=== PATIENT | male | born 1935 | race Caucasian/White ===

== ENCOUNTER → 2020-05-15 | Outpatient (CLI) | payer MEDICARE ==
[~2020-05-15] MED LIST: LEVO75TA5 PO; LISI-167 PO
[2020-05-15 12:26] LABS: ALBUMIN 3.8 g/dL (3.4-5.0); ANION GAP 4 mmol/L (5-15); CHLORIDE 108 mmol/L (98-107)
[2020-05-15 12:31] LABS: ALANINE AMINOTRANSFERASE 28 U/L (12-78); ALKALINE PHOSPHATASE 74 U/L (45-117); BILIRUBIN,TOTAL 0.7 mg/dL (0.2-1.0); CREATININE 1.09 mg/dL (0.7-1.3); TOTAL PROTEIN 7.2 g/dL (6.4-8.2)
[2020-05-15 12:36] LABS: INTERNATIONAL NORMALIZED RATIO 1.02 (0.93-1.1); PROTHROMBIN TIME 10.8 Seconds (9.6-11.5)
== END | disposition home or self-care (01) ==
LOC: STAR 11:02
PROVIDERS: ATTEND Neurological Surgery
DX: Z01.818 Encounter for other preprocedural examination (principal); M48.062 Spinal stenosis, lumbar region with neurogenic claudication; I45.10 Unspecified right bundle-branch block
CPT/HCPCS: 36415; 71046; 80053; 85610; 85730; 93005

== ENCOUNTER → 2020-05-23 | Outpatient (CLI) | payer MEDICARE | END | disposition home or self-care (01) | LOC: STAR 11:30 | PROVIDERS: ATTEND Family Medicine | DX: Z20.828 Contact with and (suspected) exposure to other viral communicable diseases (principal) | CPT/HCPCS: 87635 ==

== ENCOUNTER 2020-05-29 05:28 | Observation (INO) | payer MEDICARE ==
[~2020-05-29] VITALS: Ht 177.8 cm; Wt 93.0 kg
[2020-05-29] MEDS ORDERED: LIDOCAINE-MPF 1%, 2ML ONE (06:26)
[2020-05-29] MEDS ORDERED: CHLORHEXIDINE 15 ML UDC MM ONE (06:30)
[2020-05-29] MEDS ORDERED: BUPIVACAINE/EPI 0.5% 1:200K ONE (06:48)
[2020-05-29] MEDS ORDERED: BACITRACIN 50,000 UNIT ONE (06:48)
[2020-05-29 06:55] LABS: BASOPHILS % (AUTO) 1 % (0-1); EOSINOPHILS % (AUTO) 5 % (1-7); LYMPHOCYTES % (AUTO) 45 % (22-44); MEAN CORPUSCULAR HEMOGLOBIN 33.1 pg (27.5-34.5); MEAN CORPUSCULAR HGB CONC 33.9 g/dL (33.2-36.2); MEAN PLATELET VOLUME 7.3 fL (7.4-10.4); MONOCYTES % (AUTO) 11 % (2-9); NEUTROPHILS % (AUTO) 37 % (42-75); PLATELET COUNT 247 x10^3/uL (130-400); RED BLOOD COUNT 4.47 x10^6/uL (4.38-5.82); RED CELL DISTRIBUTION WIDTH 13.5 % (9.4-14.8)
[2020-05-29] MEDS ORDERED: LIDOCAINE-MPF 1%, 2ML INFIL ONE (07:00)
[2020-05-29] MEDS ORDERED: LACTATED RINGERS 1,000 ML IV SCH (07:00)
[2020-05-29] MEDS ORDERED: FENTANYL PF 250 MCG/5ML ONE (07:28)
[2020-05-29] MEDS ORDERED: DEXAMETHASONE 4 MG/ML, 1ML ONE (07:31)
[2020-05-29 07:47] LABS: MD SCAN
[2020-05-29] MEDS ORDERED: PROMETHAZINE 25 MG SUPP PR PRN (08:30)
[2020-05-29] MEDS ORDERED: LABETALOL 5MG/ML, 20ML IV PRN ×2 (08:30→11:30)
[2020-05-29] MEDS ORDERED: OXYcodone 5 MG/5 ML ORAL.SOL UDC PO PRN (08:30)
[2020-05-29] MEDS ORDERED: METHOCARBAMOL 1,000 MG in DEXTROSE 5% 100 ML IV PRN (08:30)
[2020-05-29] MEDS ORDERED: ONDANSETRON 2MG/ML, 2ML IVPush PRN (08:30)
[2020-05-29] MEDS ORDERED: ACETAMINOPHEN 325 MG TABLET PO PRN (08:30)
[2020-05-29] MEDS ORDERED: hydrALAzine 20 MG/ML, 1ML IV PRN (08:30)
[2020-05-29] MEDS ORDERED: PROMETHAZINE 25 MG/ML, 1ML IVPush PRN (08:30)
[2020-05-29] MEDS ORDERED: SUCCINYLCHOLINE 20 MG/ML, 10ML ONE (09:14)
[2020-05-29] MEDS ORDERED: GLYCOPYRROLATE 0.2MG/1ML, 5ML ONE (09:14)
[2020-05-29] MEDS ORDERED: ONDANSETRON 2MG/ML, 2ML ONE (09:14)
[2020-05-29] MEDS ORDERED: ROCURONIUM 10MG/ML,5ML ONE (09:14)
[2020-05-29] MEDS ORDERED: CEFAZOLIN 1,000 MG ONE (09:14)
[2020-05-29] MEDS ORDERED: NEOSTIGMINE 1 MG/ML, 10ML ONE (09:14)
[2020-05-29] MEDS ORDERED: PROPOFOL 10 MG/ML, 20ML ONE (09:14)
[2020-05-29] MEDS ORDERED: OXYcodone 5 MG/5 ML ORAL.SOL UDC ONE (09:31)
[2020-05-29] MEDS ORDERED: FENTANYL PF 100 MCG/2ML ONE (09:31)
[2020-05-29] MEDS: FENTANYL PF 100 MCG/2ML IV PRN ×2 (09:32→09:40)
[2020-05-29] MEDS ORDERED: CYCLOBENZAPRINE 10 MG TABLET ONE (09:39)
[2020-05-29] MEDS ORDERED: HYDROmorphone 1 MG/ML, 1ML INJ ONE (09:54)
[2020-05-29] MEDS: HYDROmorphone 1 MG/ML, 1ML INJ IVPush PRN ×2 (09:55→10:10)
[2020-05-29] MEDS ORDERED: CYCLOBENZAPRINE 10 MG TABLET PO ONE (10:30)
[2020-05-29] MEDS ORDERED: BISACODYL 10 MG SUPP PR PRN (11:30)
[2020-05-29] MEDS ORDERED: HYDROcodone/APAP 5/325 TABLET PO PRN (11:30)
[2020-05-29] MEDS ORDERED: MAGNESIUM HYDROXIDE 8%, 30ML UDC PO PRN (11:30)
[2020-05-29] MEDS ORDERED: DIAZEPAM 5 MG/ML, 2ML IV PRN (11:30)
[2020-05-29] MEDS ORDERED: METHOCARBAMOL 750 MG TABLET PO PRN (11:30)
[2020-05-29] MEDS ORDERED: CYCLOBENZAPRINE 10 MG TABLET PO PRN (11:30)
[2020-05-29] MEDS ORDERED: HYDROmorphone 2 MG/ML, 1ML IM PRN (11:30)
[2020-05-29] MEDS ORDERED: PROMETHAZINE 25 MG/ML, 1ML IM PRN (11:30)
[2020-05-29] MEDS ORDERED: DIPHENHYDRAMINE 50 MG/ML, 1ML IVPush PRN (11:30)
[2020-05-29] MEDS ORDERED: DIAZEPAM 5 MG TABLET PO PRN (11:30)
[2020-05-29] MEDS ORDERED: ONDANSETRON 2MG/ML, 2ML IV PRN (11:30)
[2020-05-29 13:01] VITALS: BP 112/68
[2020-05-29] MEDS: NS + 20MEQ KCL 1,000 ML IV SCH (15:51)
[2020-05-29] MEDS: CEFAZOLIN PMX 1GM/50ML 50 ML IVPB SCH (17:19)
[2020-05-29 19:09] VITALS: BP 115/65
[2020-05-30 00:35] VITALS: BP 134/71
[2020-05-30] MEDS: NS + 20MEQ KCL 1,000 ML IV SCH (00:38)
[2020-05-30] MEDS: OXYcodone IR 5MG TABLET PO PRN ×4 (00:39→11:50)
[2020-05-30] MEDS: CEFAZOLIN PMX 1GM/50ML 50 ML IVPB SCH (01:01)
[2020-05-30 04:00] VITALS: BP 108/54
[2020-05-30 05:29] LABS: ALBUMIN 2.9 g/dL (3.4-5.0); ANION GAP 7 mmol/L (5-15); CHLORIDE 108 mmol/L (98-107); CREATININE 1.14 mg/dL (0.7-1.3)
[2020-05-30 05:39] LABS: BASOPHILS % (AUTO) 0 % (0-1); EOSINOPHILS % (AUTO) 0 % (1-7); LYMPHOCYTES % (AUTO) 16 % (22-44); MEAN CORPUSCULAR HEMOGLOBIN 33.6 pg (27.5-34.5); MEAN CORPUSCULAR HGB CONC 34.6 g/dL (33.2-36.2); MEAN PLATELET VOLUME 7.6 fL (7.4-10.4); MONOCYTES % (AUTO) 8 % (2-9); NEUTROPHILS % (AUTO) 76 % (42-75); PLATELET COUNT 204 x10^3/uL (130-400); RED BLOOD COUNT 3.73 x10^6/uL (4.38-5.82); RED CELL DISTRIBUTION WIDTH 13.7 % (9.4-14.8)
[2020-05-30] MEDS ORDERED: LEVOTHYROXINE 75 MCG TABLET PO SCH (06:00)
[2020-05-30 06:12] LABS: MD NO
[2020-05-30 08:27] VITALS: BP 101/59
[2020-05-30] MEDS ORDERED: LISINOPRIL 10 MG TABLET PO SCH (09:00)
[2020-05-30] MEDS ORDERED: SENNA/DOCUSATE TABLET PO SCH (09:00)
[2020-05-30] MEDS ORDERED: OXYC5TAB3 PO (09:23)
== END 2020-05-30 12:08 | disposition home or self-care (01) ==
LOC: OUT 05:28 → 4NE 10:54 → OUT 20:05 → DCLOUNGE 05-30 11:56
PROVIDERS: ADMIT Neurological Surgery; ATTEND Neurological Surgery
DX: M48.061 Spinal stenosis, lumbar region without neurogenic claudication (principal); M54.16 Radiculopathy, lumbar region; M19.90 Unspecified osteoarthritis, unspecified site; I10 Essential (primary) hypertension; E03.9 Hypothyroidism, unspecified; Z79.899 Other long term (current) drug therapy
CPT/HCPCS: 36415; 63047; 63048; 72100; 80048; 82040; 85025; 96361; 96365; 96366; 97162; G0378; J0330; J0690; J1100; J1170; J2270; J2405; J2704; J2710; J3010; J3480; J3490; J7120